=== PATIENT | male | born 1995 | race Caucasian/White ===

== ENCOUNTER 2017-09-15 15:00 | Emergency (ER) | payer SELFPAY ==
[2017-09-15] MEDS ORDERED: Diphtheria,Pertussis(Acell),Tetanus Vaccine 0.5 ML SDV IM ONE (15:23)
--- NOTE | 2017-09-15 15:28 | EDM.PDOC ---
ED HPI GENERAL MEDICAL PROBLEM - General Chief Complaint: Upper Extremity Injury/Pain Stated Complaint: RIGHT ARM INJURY Time Seen by Provider: 09/15/17 15:22 Source of Information: Reports: Patient History Limitations: Reports: No Limitations - History of Present Illness INITIAL COMMENTS - FREE TEXT/NARRATIVE: 21-year-old male presents to the ED after injury sustained around midnight last night. He was drinking heavily and states he tried to get over giovanny wire fence and fell face first into the ground. He suffered a contusion with superficial laceration to his lateral right eyebrow area. There was no loss of consciousness. He has no nausea vomiting or significant headache at this time. Range of motion of his neck is normal. He states his primary pain is in his right wrist and forearm. He is unable to make a fist has pain dorsal hand wrist and proximal forearm of the right side. He is right-hand dominant. He also banged up his right hip but he can still walk although he is walking with a limp. Unsure when his last tetanus was given. Onset: Today Onset Date: 09/15/17 Onset Time: 00:00 Duration: Hour(s): Location: Reports: Face, Upper Extremity, Right (Right wrist dorsal hand and proximal forearm discomfort. Unable to make a fist.), Lower Extremity, Right ( Right hip contusion with abrasion.). Denies: Neck (Superficial laceration right lateral eyebrow), Chest, Abdomen, Back, Pelvis Quality: Reports: Ache Severity: Moderate (Right forearm and wrist hurt quite badly) Improves with: Reports: None, Rest Worsens with: Reports: Movement Associated Symptoms: Reports: Rash. Denies: Confusion, Chest Pain, Cough, cough w sputum, Diaphoresis, Fever/Chills, Headaches, Loss of Appetite, Malaise , Nausea/Vomiting, Seizure, Shortness of Breath (Abrasions to the volar aspect of his right forearm), Syncope Treatments TAX COLLECTOR: Reports: NSAIDS (Motrin.) Right Arm Pain Score (Numeric/FACES): 6 - Related Data Allergies Allergy/AdvReac Type Severity Reaction Status Date / Time No Known Allergies Allergy Verified 09/15/17 15:14 Home Meds: Home Meds . [No Known Home Meds] 09/15/17 [History] Past Medical History - Past Health History Medical/Surgical History: Denies Medical/Surgical History Social & Family History - Tobacco Use Smoking Status *Q: Current Every Day Smoker Years of Tobacco use: 8 Packs/Tins Daily: 0.4 - Caffeine Use Caffeine Use: Reports: Coffee, Soda, Tea - Recreational Drug Use Recreational Drug Use: No - Living Situation & Occupation Living situation: Reports: Single Review of Systems - Review of Systems Review Of Systems: See Below Constitutional: Reports: Weakness. Denies: Chills, Diaphoresis, Fever, Other ( Right wrist and hand.) Eyes: Reports: No Symptoms, Other (Has a contusion to his right lateral eyebrow superficial laceration with dried blood.) Ears: Reports: No Symptoms Nose: Reports: No Symptoms Mouth/Throat: Reports: No Symptoms Respiratory: Reports: No Symptoms, Other (No chest pain.) Cardiovascular: Reports: No Symptoms GI/Abdominal: Reports: No Symptoms Genitourinary: Reports: No Symptoms Musculoskeletal: Reports: No Symptoms Skin: Reports: Other Neurological: Reports: Weakness (Right wrist and forearm due to pain). Denies: Confusion, Dizziness, Headache, Numbness, Paresthesia, Pre-Existing Deficit, Seizure, Syncope, Tingling, Trouble Speaking, Difficulty Walking Psychiatric: Reports: No Symptoms ED EXAM, GENERAL - Physical Exam Exam: See Below Exam Limited By: No Limitations General Appearance: Alert, WD/WN, Mild Distress, Other Eye Exam: Right Eye: Periorbital Changes (Has a superficial laceration with covered dried blood partially centimeter in length right lateral eyebrow area. It appears to be fairly superficial and does not need sutures at this time), Bilateral Eye: Normal Inspection, PERRL Throat/Mouth: Normal Inspection, Normal Lips, Normal Teeth, Normal Oropharynx Head: Atraumatic, Normocephalic Neck: Normal Inspection, Supple, Non-Tender, Full Range of Motion. No: Lymphadenopathy (L), Lymphadenopathy (R) Respiratory/Chest: No Respiratory Distress, Lungs Clear, Normal Breath Sounds, No Accessory Muscle Use, Other Cardiovascular: Normal Peripheral Pulses (No pain on compression of his ribs or sternum), Regular Rate, Rhythm, No Edema, No Murmur Back Exam: Normal Inspection, Full Range of Motion, Other (He has some pain over his mid to posterior iliac crest area with no abrasions or contusions. No evidence of fracture.). No: CVA Tenderness (L), CVA Tenderness (R) Extremities: Other (Inspection of his right forearm shows he has pain proximal forearm volarly with some swelling in the superficial abrasions. Most the pain however is in the wrist area. Dorsal hand is also swollen and is unable to make a complete fist. Suspect undisplaced fracture of the distal radius.) Neurological: Alert, Oriented, CN II-XII Intact, Normal Cognition Psychiatric: Normal Affect, Normal Mood Skin Exam: Warm, Dry, Intact, Normal Color, Other (Superficial abrasions volar right forearm.) ED TRAUMA EXTREMITY PROCEDURES - Splinting Right Upper Extremity Splint Site: Short arm right sided thumb spica cast for scaphoid fracture Splint Material: Fiberglass Splint Design: Thumb Spica Applied & Form Fitted By: Provider Provider Post-Splint Application NV Check: NV Status Normal Complications: No Course - Vital Signs Last Recorded V/S: Last Vital Signs Temp 37.0 C 09/15/17 15:17 Pulse 87 09/15/17 15:17 Resp 20 09/15/17 15:17 BP 130/87 09/15/17 15:17 Pulse Ox 99 09/15/17 15:17 - Orders/Labs/Meds Orders: Active Orders 24 hr Category Date Time Status Vaccines to be Administered [RC] PER UNIT ROUTINE Care 09/15/17 15:23 Active Forearm 2V Rt [CR] Stat Exams 09/15/17 15:23 Taken Hand Comp Min 3V Rt [CR] Stat Exams 09/15/17 15:24 Taken Meds: Medications Discontinued Medications Generic Name Dose Route Start Last Admin Trade Name Freq PRN Reason Stop Dose Admin Diphtheria/Tetanus/Acell Pertussis 0.5 ml 09/15/17 15:23 09/15/17 15:55 Adacel IM 09/15/17 15:24 0.5 ml .ONCE ONE Administration - Radiology Interpretation Free Text/Narrative:: 21-year-old male presents to the ED after falling last night while drinking alcohol. Tried to go or bulbar fence got tripped up and fell face first. Suffered a contusion to his right lateral eyebrow with a 1 cm superficial laceration. It does not require suture repair. His chief complaint is injury to his right upper extremity. He is unable to make a complete fist due to pain in the wrist. This is suspicious for fracture. He also has pain in the proximal aspect of his volar forearm. The humerus and is intact clavicles intact before meals joint is intact on the right side. He also has a contusion to his right hip superficial abrasions as well. Plan x-ray right forearm and hand. - Re-Assessments/Exams Free Text/Narrative Re-Assessment/Exam: 09/15/17 15:44 x-rays of the forearm reveal slight elevation of the anterior fat pad suggesting fluid within the elbow but there is no fractures evident in the elbow itself. X-rays of the hand and wrist reveal a fracture through the scaphoid bone to the waist. Alignment is good. I will place him in a thumb spica cast. 09/15/17 16:26 thumb spica Orthoglass cast placed. Patient will hopefully follow-up with orthopedic surgeon here. He was advised the nature of these fractures takes a long time to heal like 3 months. They can go on to malunion due to blood supply to the distal aspect of this bone. Departure - Departure Time of Disposition: 16:21 Disposition: Home, Self-Care 01 Condition: Fair Clinical Impression: Contusion of right forearm, initial encounter, Contusion of right hip Scaphoid fracture, wrist, closed Qualifiers: Encounter type: initial encounter Scaphoid bone location: middle third Fracture alignment: nondisplaced Laterality: right Qualified Code(s): S62.024A - Nondisplaced fracture of middle third of navicular [scaphoid] bone of right wrist, initial encounter for closed fracture - Discharge Information Referrals: PCP,Not In Area [Primary Care Provider] - Forms: ED Department Discharge Additional Instructions: Evaluation in the emergency room today in regards to injuries sustained from jumping over a giovanny wire fence and getting tripped up early this morning. You suffered a contusion with superficial abrasion to her right lateral eyebrow area. This areas to be cleansed daily with soap and water and apply topical antibiotic such as bacitracin or Polysporin once daily primarily at bedtime to keep it from getting infected. Her tetanus, diphtheria and pertussis vaccination was updated today and is good for the next 10 years. Examination of your right forearm showed significant swelling of the dorsal aspect of your hand and wrist area with inability to make a fist. Also pain in the volar aspect of the musculature of the forearm closer to the elbow. Therefore x-rays of your whole forearm and elbow were obtained and they don't reveal any fractures of the forearm bones or elbow. There is a little bit of swelling inside the elbow joint from jamming up the joint from the fall. X-rays of the hand and wrist did reveal a fracture of the scaphoid bone or navicular bone. Fracture is undisplaced. You're therefore placed in a thumb spica cast and this is to remain in place until follow-up with orthopedic surgeon. Ideally at follow -up x-ray needs to be done in 7-10 days time. You're close to [place] then please call [phone] to make an appointment to see Dr. Alatorre orthopedic surgeon on the second floor of the [facility]. If you are elsewhere then follow-up into an ER orthopedic surgeon to have x-rays of your wrist repeated. Elevate the hand is much as possible to prevent it from swelling. Motrin 600 mg every 6 hours needed for pain relief. - My Orders Last 24 Hours: My Active Orders 09/15/17 15:23 Vaccines to be Administered [RC] PER UNIT ROUTINE Forearm 2V Rt [CR] Stat 09/15/17 15:24 Hand Comp Min 3V Rt [CR] Stat - Assessment/Plan Last 24 Hours: My Active Orders 09/15/17 15:23 Vaccines to be Administered [RC] PER UNIT ROUTINE Forearm 2V Rt [CR] Stat 09/15/17 15:24 Hand Comp Min 3V Rt [CR] Stat
--- NOTE | 2017-09-16 07:35 | CR ---
Right forearm: Two views of the right forearm were obtained. Comparison: No prior study. Soft tissue swelling is noted distally within the forearm and wrist. Lucency is seen within the mid navicular bone compatible with fracture. No additional fracture or other abnormality is identified. Impression: 1. Soft tissue swelling. 2. Nondisplaced fracture within the mid navicular bone. 3. Right forearm study is otherwise unremarkable. Diagnostic code #3
--- NOTE | 2017-09-16 07:43 | CR ---
Right hand: Four views of the right hand were obtained. Comparison: No previous right hand exam. Nondisplaced fracture identified within the mid pole of the navicular bone. No additional fracture is seen. Linear opacity is identified within the right second finger involving the base presumably due to dystrophic calcification or overlying artifact. Impression: 1. Nondisplaced navicular fracture. 2. Questionable opacity within or overlying the right second finger. Diagnostic code #3
== END 2017-09-15 16:35 | disposition home or self-care (01) ==
LOC: JD.ED 15:00
DX: S62.024A Nondisplaced fracture of middle third of navicular [scaphoid] bone of right wrist, initial encounter for closed fracture (principal); S50.11XA Contusion of right forearm, initial encounter; S70.01XA Contusion of right hip, initial encounter; F17.210 Nicotine dependence, cigarettes, uncomplicated; Z23 Encounter for immunization; W17.89XA Other fall from one level to another, initial encounter
CPT/HCPCS: 29125; 73090-26-RT; 73090-RT; 73130-26-RT; 73130-RT; 90471; 90715; 99283-25